=== PATIENT | female | born 1965 | race African-American/Black ===

== ENCOUNTER 2018-11-18 14:33 | Emergency (ER) | payer OTHER ==
--- NOTE | 2018-11-18 14:52 | UC ---
Throat Pain/Nasal Todd HPI - HPI Summary HPI Summary: 53 yo female presents with sinus congestion, runny nose, and slight dry cough for the last 6 days. Last night developed a sore throat. All her symptoms seem better this morning. She has not been taking anything OTC. Denies fever, chills , SOB, abdominal pain, n/v. - History of Current Complaint Stated Complaint: SORE THROAT Time Seen by Provider: 11/18/18 14:51 Hx Obtained From: Patient Onset/Duration: Gradual Onset Severity: Mild Pain Intensity: 1 Pain Scale Used: 0-10 Numeric - Allergies/Home Medications Allergies/Adverse Reactions: Allergies Allergy/AdvReac Type Severity Reaction Status Date / Time erythromycin base Allergy Unknown Verified 11/18/18 14:59 Reaction Details shellfish derived Allergy Mouth Verified 11/18/18 14:59 itchy and swells Home Medications: Home Medications NK [No Home Medications Reported] 11/18/18 [History Confirmed 11/18/18] PMH/Surg Hx/FS Hx/Imm Hx - Additional Past Medical History Additional PMH: Vitamin B and D def - Surgical History Surgical History: Yes Surgery Procedure, Year, and Place: 07/2015 EXCISION OF LIPOMA FROM [facility]; [place] [facility] [place] - Family History Known Family History: Positive: None Negative: Blood Disorder - Social History Occupation: Employed Full-time Lives: With Family Alcohol Use: Rare Alcohol Amount: 4 x TIMES A YEAR Substance Use Type: None Smoking Status (MU): Former Smoker Type: Cigarettes Length of Time of Smoking/Using Tobacco: 6 MONTHS Have You Smoked in the Last Year: No When Did the Patient Quit Smoking/Using Tobacco: 25 YEARS AGO - Immunization History Most Recent Influenza Vaccination: Not UTD Review of Systems All Other Systems Reviewed And Are Negative: Yes Constitutional: Positive: Negative Skin: Positive: Negative Eyes: Positive: Negative ENT: Positive: Sore Throat, Nasal Discharge Cardiovascular: Positive: Negative Gastrointestinal: Positive: Negative Neurovascular: Positive: Negative Neurological: Positive: Negative Psychological: Positive: Negative Physical Exam - Summary Physical Exam Summary: GENERAL: NAD. WDWN. No pain distress. SKIN: No rashes, sores, lesions, or open wounds. HEENT: Head: AT/NC Eyes: Conjunctiva clear without inflammation or discharge. Ears: Hearing grossly normal. B/L brown/black cerumen impaction. S/ p irrigation: TMs intact, no bulging, erythema, or edema. Nose: Nasal mucosa pink and moist. NTTP maxillary and frontal sinus. Throat: Posterior oropharynx mild erythema and 2+ tonsillar enlargement. Mild white exudates. Uvula midline. No hoarse voice or muffled voice. NECK: Supple. Nontender. No lymphadenopathy. CHEST: CTAB. No r/r/w. No accessory muscle use. Breathing comfortably and in no distress. CV: RRR. Without m/r/g. Pulses intact. Cap refill <2seconds NEURO: Alert. PSYCH: Age appropriate behavior. Triage Information Reviewed: Yes Vital Signs: Vital Signs: Temp Pulse Resp BP Pulse Ox 97.1 F 73 16 137/71 100 11/18/18 14:51 11/18/18 14:51 11/18/18 14:51 11/18/18 14:51 11/18/18 14:51 Vital Signs Reviewed: Yes Throat Pain/Nasal Course/Dx - Course Course Of Treatment: Suspect viral syndrome. Cerumen impaction - with successful disimpaction. TMs WNL. - Differential Dx/Diagnosis Provider Diagnosis: Viral syndrome, Cerumen impaction Discharge - Sign-Out/Discharge Documenting (check all that apply): Patient Departure All imaging exams completed and their final reports reviewed: No Studies - Discharge Plan Condition: Stable Disposition: HOME Patient Education Materials: Cerumen Impaction (ED), Viral Syndrome (ED) Referrals: Henry Goldstein MD [Primary Care Provider] - Additional Instructions: If you develop a fever, shortness of breath, chest pain, new or worsening symptoms - please call your PCP or go to the ED. - Billing Disposition and Condition Condition: STABLE Disposition: Home - Attestation Statements Provider Attestation: I was available for consult. This patient was seen by the HELIO. The patient was not presented to, seen by, or examined by me. -Michelle
[2018-11-18 14:58] VITALS: BP 137/71
== END 2018-11-18 15:35 | disposition home or self-care (01) ==
LOC: UCEAST 14:33
DX: B34.9 Viral infection, unspecified (principal); H61.23 Impacted cerumen, bilateral; Z88.1 Allergy status to other antibiotic agents; Z91.013 Allergy to seafood; Z87.891 Personal history of nicotine dependence
CPT/HCPCS: 99213; G0463

== ENCOUNTER → 2020-03-03 22:55 | Emergency (ER) | payer OTHER ==
[~2020-03-03 22:55] MED LIST: HYDROmorphone 0.5 MG/0.5 ML SYRINGE IV ONE; Morphine 4 MG/ML VIAL (1 ml) IV ONE; NS 0.9% 1000 ml BAG 1,000 ML IV ONE; Ondansetron 4 mg VIAL 2 MG/ML 2 ml VIAL IV ONE; Potassium Chlor 20 meq TAB.ER PO ONE
[2020-03-04 00:30] LABS: Albumin 4.1 g/dL (3.2-5.2); Albumin/Globulin Ratio 1.5 (1-3); BUN/Creatinine Ratio 15.2 (8-20); C Reactive Protein 1.32 mg/L (<8.01); EGFR African American 65.6 (>60); EGFR Non-African American 54.2 (>60); Globulin 2.7 g/dL (2-4); Potassium 3.2 mmol/L (3.5-5.0); Total Bilirubin 0.3 mg/dL (0.2-1.0); Total Protein 6.8 g/dL (6.4-8.9)
[2020-03-04 01:16] LABS: ABS Lymphocytes 1.9 10^3/ul (1.0-4.8); ABS Monocytes 0.6 10^3/ul (0-0.8); Eosinophil % 0.1 %; Hematocrit 35 % (35-47); Hemoglobin 12.5 g/dL (12.0-16.0); Lymphocyte % 16.5 %; Mean Corpuscular HGB Conc 35 g/dL (31-36); Mean Corpuscular Hemoglobin 30 pg (27-31); Mean Corpuscular Volume 85 fL (80-97); Mean Platelet Volume 7.6 fL (7.4-10.4); Platelet Count 245 10^3/uL (150-450); Red Blood Count 4.16 10^6 /uL (3.70-4.87); Red Cell Distribution Width 13 % (10-15); White Blood Count 11.2 10^3/uL (3.5-10.8)
[2020-03-04 03:25] VITALS: BP 107/68
== END | disposition home or self-care (01) ==
LOC: ED 22:55
DX: E87.6 Hypokalemia (principal); R10.84 Generalized abdominal pain; F41.9 Anxiety disorder, unspecified; R11.2 Nausea with vomiting, unspecified; R74.0 Nonspecific elevation of levels of transaminase and lactic acid dehydrogenase [LDH]; Z87.891 Personal history of nicotine dependence; Z87.442 Personal history of urinary calculi; Z86.79 Personal history of other diseases of the circulatory system